=== PATIENT | male | born 1965 | race Caucasian/White ===

== ENCOUNTER 2018-01-30 14:45 | Emergency (ER) | payer OTHER ==
[~2018-01-30] VITALS: Ht 172.7 cm; Wt 108.9 kg
[2018-01-30] MEDS ORDERED: XARELTO15 MG PO (15:10)
[2018-01-30] MEDS ORDERED: XARELTO20 MG PO (15:12)
[2018-01-30] MEDS ORDERED: CARB200 PO (15:27)
[2018-01-30] MEDS ORDERED: DOCU100 PO (15:27)
[2018-01-30] MEDS ORDERED: Mobic15 MG PO (15:28)
[2018-01-30] MEDS ORDERED: SENN187 PO (15:28)
[2018-01-30] MEDS ORDERED: TOPI50 PO (15:28)
[2018-01-30] MEDS ORDERED: FURO20 PO (15:28)
== END 2018-01-30 15:29 | disposition home or self-care (01) ==
LOC: ER 14:45
DX: I82.412 Acute embolism and thrombosis of left femoral vein (principal); I82.432 Acute embolism and thrombosis of left popliteal vein; I82.442 Acute embolism and thrombosis of left tibial vein; Z88.8 Allergy status to other drugs, medicaments and biological substances
CPT/HCPCS: 93971

== ENCOUNTER 2018-08-10 11:00 | Day surgery (SDC) | payer OTHER ==
[~2018-08-10 11:00] MED LIST: CARB200 PO; DOCU100 PO; FURO20 PO; Mobic15 MG PO; SENN187 PO; TOPI50 PO; XARELTO15 MG PO; XARELTO20 MG PO
== END 2018-08-10 22:37 | disposition home or self-care (01) ==
LOC: CT 11:00 → RAD 11:00
DX: M51.37 Other intervertebral disc degeneration, lumbosacral region (principal); M51.26 Other intervertebral disc displacement, lumbar region; M47.896 Other spondylosis, lumbar region; M54.17 Radiculopathy, lumbosacral region
CPT/HCPCS: 62304; 72132; Q9966

== ENCOUNTER → 2020-01-30 | Outpatient (CLI) | payer OTHER ==
[2020-01-30 11:35] LABS: BASOPHILS ABSOLUTE AUTO 0.04 K/mm3 (0.00-0.23); BASOPHILS PERCENT AUTO 1 % (0-2); EOSINOPHILS ABSOLUTE AUTO 0.14 K/mm3 (0.00-0.68); EOSINOPHILS PERCENT AUTO 2 % (0-6); Hematocrit 43.2 % (37.0-53.0); Hemoglobin 15.2 g/dL (13.5-17.5); IMMATURE GRAN ABSOLUTE AUTO 0.01 K/mm3 (0.00-0.10); IMMATURE GRAN PERCENT AUTO 0 % (0-1); LYMPHOCYTES ABSOLUTE AUTO 2.05 K/mm3 (0.84-5.20); LYMPHOCYTES PERCENT AUTO 32 % (21-46); MONOCYTES PERCENT AUTO 10 % (4-13); Mean Corpuscular HGB 34.4 pg (26.0-34.0); Mean Corpuscular HGB Conc 35.2 g/dL (31.5-36.5); Mean Corpuscular Volume 98 fL (80-100); Mean Platelet Volume 10.2 fL (9.1-12.4); NEUTROPHILS PERCENT AUTO 55 % (41-73); Platelet Count 147 K/mm3 (150-400); RDW Coefficient Variation 12.1 % (11.7-14.2); RDW Standard Deviation 43.2 fL (35.1-46.3); Red Blood Cell Count 4.42 M/mm3 (4.30-5.90); White Blood Cell Count 6.34 K/mm3 (4.00-11.30)
== END | disposition home or self-care (01) ==
LOC: LAB 10:50 → LAB SHORT 10:50
PROVIDERS: Family Medicine
DX: K92.1 Melena (principal)
CPT/HCPCS: 85025

== ENCOUNTER 2025-01-10 12:14 | Emergency (ER) | payer OTHER ==
[~2025-01-10] VITALS: Ht 172.7 cm; Wt 104.3 kg
[2025-01-10 16:15] VITALS: BP 136/89
== END 2025-01-10 16:14 | disposition home or self-care (01) ==
LOC: ER 12:14
DX: R10.30 Lower abdominal pain, unspecified (principal); T38.3X5A Adverse effect of insulin and oral hypoglycemic [antidiabetic] drugs, initial encounter; E11.9 Type 2 diabetes mellitus without complications; Z86.718 Personal history of other venous thrombosis and embolism; Z87.891 Personal history of nicotine dependence; Z88.8 Allergy status to other drugs, medicaments and biological substances; Z79.01 Long term (current) use of anticoagulants; Z79.85 Long-term (current) use of injectable non-insulin antidiabetic drugs; Z79.84 Long term (current) use of oral hypoglycemic drugs; Z79.899 Other long term (current) drug therapy